=== PATIENT | male | born 1950 | race Caucasian/White ===

== ENCOUNTER 2021-10-21 11:49 | Outpatient (CLI) | payer MEDICARE, SELFPAY ==
--- NOTE | ~2021-10-21 | XR_ITS ---
EXAMINATION: XR shoulder RT min 2V INDICATION: Right shoulder pain TECHNIQUE: Four views of the right shoulder are submitted. COMPARISON: None FINDINGS: Normal alignment. No fracture. There is mild glenohumeral and acromioclavicular joint osteo arthritis. Soft tissues are unremarkable. IMPRESSION: 1. Mild osteoarthritis without acute osseous abnormality. Reviewed, dictated and finalized at location B.
--- NOTE | ~2021-10-21 | XR_ITS ---
EXAMINATION:XR cervical spine 4-5V DATE: 10/21/2021 13:27 INDICATION: Neck and shoulder pain, paresthesia of the right arm TECHNIQUE: AP, lateral, bilateral oblique, lateral swimmers and odontoid views of the cervical spine are provided. COMPARISON: None FINDINGS: There is 1 mm of retrolisthesis of C3 on C4 and there are 2 mm of retrolisthesis of C4 on C 5. The odontoid is intact. No fracture is identified. The vertebral body heights are normal. There is moderate loss of intervertebral disc space height at C3-4, C4-5, and C6-7. 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 There is at least moderate neuroforaminal stenosis at multiple levels on the right. Prevertebral soft tissues are normal. IMPRESSION: 1. Severe cervical spondylosis without acute findings. Reviewed, dictated and finalized at location B.
== END 2021-10-21 11:50 | disposition home or self-care (01) ==
PROVIDERS: PCP Family Medicine; Visit Provider Family Medicine
DX: M25.511 Pain in right shoulder (principal); R20.2 Paresthesia of skin; M47.812 Spondylosis without myelopathy or radiculopathy, cervical region; M19.011 Primary osteoarthritis, right shoulder
CPT/HCPCS: 72050; 73030

== ENCOUNTER 2025-03-16 11:14 | Outpatient (CLI) | payer SELFPAY ==
--- NOTE | ~2025-03-16 | XR_ITS ---
EXAMINATION: XR clavicle LT, 03/16/2025 11:19 CDT HISTORY: M25.519 - Pain in unspecified shoulder COMPARISON: No comparisons available. Findings: No acute fracture or malalignment. Moderate degenerative changes acromioclavicular joint Soft tissues unremarkable. Impression: No acute fracture or malalignment. Reviewed, dictated and finalized at location P. Impression: No acute fracture or malalignment.
== END 2025-03-16 11:15 | disposition home or self-care (01) ==
LOC: MICIMG 11:15
PROVIDERS: PCP Family Medicine; Visit Provider Family Medicine
DX: M25.512 Pain in left shoulder (principal)
CPT/HCPCS: 73000